=== PATIENT | female | born 1950 | race Asian ===

== ENCOUNTER 2019-11-17 01:36 | Emergency (ER) | payer OTHER ==
[2019-11-17 01:47] VITALS: BP 151/73; PULSE 64; TEMP 98.8; BMI 29.1
--- NOTE | 2019-11-17 02:23 | PDOC ---
History of Present Illness - General Chief Complaint: Constipation Stated Complaint: CONSTIPATION Time Seen by Provider: 11/17/19 02:23 History Source: Patient Exam Limitations: No Limitations - History of Present Illness Initial Comments: 11/17/19 03:08 68yF w PMHx HTN presenting w 4d mild progressive worsening lower ABD pain and constipation. Last large BM 4d ago, had small stool passage this morning. Went to [facility] this afternoon, XR ABD showed solitary dilated loop of ileum in R paraspinal area w probable wall thickening attributed to constipation, DC home with Mg citrate and colace. Didn't crab picker meds because she thought that they would be prescribed. HAd 1 distant episode of constipation in past. Still able to eat food. Denies fever, n/v, dysuria. Past History - Medical History Allergies/Adverse Reactions: Allergies Allergy/AdvReac Type Severity Reaction Status Date / Time No Known Allergies Allergy Verified 11/17/19 01:46 Home Medications: Ambulatory Orders Bisacodyl [Dulcolax] 5 mg PO DAILY 30 Days #30 tablet. 11/17/19 - Psycho-Social/Smoking History Smoking History: Never smoked Have you smoked in the past 12 months: No Information on smoking cessation initiated: No - Substance Abuse Hx (Audit-C & DAST Scrn) How often the patient has a drink containing alcohol: Never Score: In Men: 4 or > Positive; In Women: 3 or > Positive: 0 Screen Result (Pos requires Nsg. Audit-10AR): Negative In the last yr the pt used illegal drug/Rx for NonMed reason: No Score: Yes response is considered Positive: 0 Screen Result (Positive result requires Nsg. DAST-10): Negative Review of Systems - Review of Systems Constitutional: No: Chills, Fever HEENTM: No: Eye Pain, Nose Pain Respiratory: No: Cough, Shortness of Breath Cardiac (ROS): No: Chest Pain, Lightheadedness ABD/GI: Yes: Constipated. No: Nausea, Vomiting : No: Burning, Dysuria Musculoskeletal: No: Back Pain, Joint Pain Integumentary: No: Bruising, Dryness Neurological: No: Headache, Seizure Psychiatric: No: Anxiety, Depression Endocrine: No: Intolerance to Cold, Intolerance to Heat Hematologic/Lymphatic: No: Anemia, Blood Clots *Physical Exam - Vital Signs Last Vital Signs Temp Pulse Resp BP Pulse Ox 98.8 F 64 18 151/73 99 11/17/19 01:44 11/17/19 01:44 11/17/19 01:44 11/17/19 01:44 11/17/19 01:44 - Physical Exam General Appearance: Yes: Nourished, Appropriately Dressed, Mild Distress HEENT: positive: EOMI, PUNEET, Normal Voice, Hearing Grossly Normal. negative: Scleral Icterus (R), Scleral Icterus (L) Respiratory/Chest: positive: Lungs Clear, Normal Breath Sounds. negative: Chest Tender, Respiratory Distress Cardiovascular: positive: Regular Rhythm, Regular Rate, S1, S2. negative: Edema, Murmur Gastrointestinal/Abdominal: positive: Normal Bowel Sounds, Tender (mild RLQ LLQ), Flat, Soft. negative: Organomegaly, Guarding, Rebound Musculoskeletal: negative: CVA Tenderness (R), CVA Tenderness (L) Integumentary: positive: Normal Color, Warm Neurologic: positive: pipe insulator helper II-XII NML intact, Fully Oriented, Alert, Responsive ED Treatment Course - LABORATORY CBC & Chemistry Diagram: 11/17/19 03:55 11/17/19 03:55 Medical Decision Making - Medical Decision Making 11/17/19 03:12 CT A/P - moderate stool burden, no obstruction/inflammati on/diverticulitis/infection --- 68yF w PMHx HTN presenting w 4d mild progressive worsening lower ABD pain d/t constipation. Low concern for SBO (not diffusely tender) vs UTI (no dysuria, clean UA) vs kidney stone (no hematuria) vs diverticulitis (neg CT) DC home w Dulcolax, GI referral Discharge - Discharge Information Problems reviewed: Yes Clinical Impression/Diagnosis: Constipation Qualifiers: Constipation type: unspecified constipation type Qualified Code(s): K59.00 - Constipation, unspecified Condition: Good Disposition: HOME - Additional Discharge Information Prescriptions: Bisacodyl [Dulcolax] 5 mg PO DAILY 30 Days #30 tablet. - Follow up/Referral Referrals: Virgie Pace MD [Primary Care Provider] - Danny Sosa MD [Staff Physician] - - Patient Discharge Instructions Patient Printed Discharge Instructions: DI for Constipation Additional Instructions: Your imaging does not show anything concerning Take your home Miralax, Senna, and the prescribed Dulcolax everyday as directed Follow up with the referred GI Dr Sosa - Post Discharge Activity
--- NOTE | 2019-11-17 02:33 | PDOC ---
Attending Attestation - Resident Resident Name: Carlos Isbell - ED Attending Attestation I have performed the following: I have examined & evaluated the patient, The case was reviewed & discussed with the resident, I agree w/resident's findings & plan, Exceptions are as noted - HPI HPI: 68 yo F presents with constipation for the past 4 days. She states she is having associated lower abdominal pain, worst in LLQ. Denies fever, chills, N/V/D. She has had constipation once in the past, less severe, and not associated with any pain. - Physicial Exam PE: GENERAL: Awake, alert, and fully oriented, in no acute distress HEAD: No signs of trauma EYES: PERRLA, EOMI, sclera anicteric, conjunctiva clear ENT: Auricles normal inspection, hearing grossly normal, nares patent, oropharynx clear without exudates. Moist mucosa NECK: Normal ROM, supple, no lymphadenopathy, JVD, or masses LUNGS: Breath sounds equal, clear to auscultation bilaterally. No wheezes, and no crackles HEART: Regular rate and rhythm, normal S1 and S2, no murmurs, rubs or gallops ABDOMEN: Soft, +LLQ tenderness, normoactive bowel sounds. +Mild guarding, no rebound. No masses EXTREMITIES: Normal range of motion, no edema. No clubbing or cyanosis. No cords, erythema, or tenderness NEUROLOGICAL: Cranial nerves II through XII grossly intact. Normal speech, normal gait. Motor and sensation intact SKIN: Warm, dry, normal turgor, no rashes or lesions noted. - Medical Decision Making 11/17/19 03:14 Pt with LLQ pain. Will obtain labs, CT to r/o diverticulitis, as this is a change in her bowel habits and she is tender to LLQ. Discharge - Discharge Information Problems reviewed: Yes Clinical Impression/Diagnosis: Constipation Qualifiers: Constipation type: unspecified constipation type Qualified Code(s): K59.00 - Constipation, unspecified Condition: Good Disposition: HOME - Additional Discharge Information Prescriptions: Bisacodyl [Dulcolax] 5 mg PO DAILY 30 Days #30 tablet. - Follow up/Referral Referrals: Virgie Pace MD [Primary Care Provider] - Danny Sosa MD [Staff Physician] - - Patient Discharge Instructions Patient Printed Discharge Instructions: DI for Constipation Additional Instructions: Your imaging does not show anything concerning Take your home Miralax, Senna, and the prescribed Dulcolax everyday as directed Follow up with the referred GI Dr Sosa - Post Discharge Activity
[2019-11-17 04:26] LABS: BASO % 0.6 % (0-2.0); EOS % 2.2 % (0-4.5); HEMATOCRIT 39.5 % (32.4-45.2); HEMOGLOBIN 13.2 GM/dL (10.7-15.3); LYMPH % 29.8 % (8-40); MCH 30.2 pg (25.7-33.7); MCHC 33.5 g/dl (32.0-36.0); MEAN CELL VOLUME 90.3 fl (80-96); MEAN PLT VOLUME 9.2 fl (7.5-11.1); MONO % 7.9 % (3.8-10.2); NEUT % 59.5 % (42.8-82.8); PLATELET COUNT 251 K/MM3 (134-434); RBC 4.37 M/mm3 (3.60-5.2); WHITE BLOOD COUNT 9.4 K/mm3 (4.0-10.0)
[2019-11-17 04:41] LABS: BLOOD UREA NITROGEN 21.6 mg/dL (7-18); CALCIUM 9.6 mg/dL (8.5-10.1); CREATININE 0.7 mg/dL (0.55-1.3); POTASSIUM 4.3 mmol/L (3.5-5.1)
[2019-11-17 05:10] LABS: PH,URINE 6.5 (5.0-8.0); URINE APPEARANCE CLEAR; URINE BILIRUBIN NEGATIVE (NEGATIVE); URINE COLOR YELLOW; URINE GLUCOSE (UA) NEGATIVE (NEGATIVE); URINE KETONE NEGATIVE (NEGATIVE); URINE LEUK ESTERASE NEGATIVE (NEGATIVE); URINE NITRITE NEGATIVE (NEGATIVE); URINE PROTEIN NEGATIVE (NEGATIVE); URINE UROBILINOGEN 0.2 mg/dL (0.2-1.0)
== END 2019-11-17 07:07 | disposition home or self-care (01) ==
LOC: JER 01:36
DX: K59.00 Constipation, unspecified (principal)
CPT/HCPCS: 36415; 74177-TC; 80048; 81003; 85025; 99284-25; Q9967